=== PATIENT | female | born 1990 | race Caucasian/White ===

== ENCOUNTER 2016-11-26 11:20 | Emergency (ER) | payer OTHER ==
[~2016-11-26] VITALS: Ht 147.3 cm; Wt 68.0 kg
[2016-11-26 11:23] VITALS: BP_SYST 104; BP_SYST 82
[2016-11-26 11:48] LABS: BASOPHILS % (AUTO) 0.6 % (0.0-2.0); EOSINOPHILS # (AUTO) 0.1 K/uL (0.0-0.4); EOSINOPHILS % (AUTO) 1.4 % (0.0-4.0); HEMATOCRIT 40.8 % (36-48); HEMOGLOBIN 13.6 g/dL (12.0-16.0); LYMPHOCYTES % (AUTO) 23.9 % (20.5-51.5); MEAN CORPUSCULAR HEMOGLOBIN 28 pg (27-31); MEAN CORPUSCULAR HGB CONC 33 % (32-36); MEAN CORPUSCULAR VOLUME 85 fL (79.0-98.0); MONOCYTES # (AUTO) 0.6 K/uL (0.0-1.0); MONOCYTES % (AUTO) 6.8 % (1.7-9.3); NEUTROPHILS # (AUTO) 5.6 K/uL (1.8-7.7); NEUTROPHILS % (AUTO) 67.3 % (40.0-70.0); PLATELET COUNT (AUTO) 209 K/uL (130-430); WHITE BLOOD COUNT (AUTO) 8.3 K/uL (4.8-10.8)
[2016-11-26 12:00] LABS: CALCIUM 9.3 mg/dL (8.4-11.0); CREATININE 0.83 mg/dL (0.55-1.30); POTASSIUM 3.8 mmol/L (3.5-5.1)
[2016-11-26 12:04] LABS: INR 1.1 (0.8-1.2); PROTHROMBIN TIME 11.1 SECS (9.5-12.5)
[2016-11-26 12:05] LABS: ALBUMIN 3.7 g/dL (3.4-4.8); TOTAL BILIRUBIN 0.6 mg/dL (0.0-1.0)
[2016-11-26 13:21] VITALS: BP_SYST 119
== END 2016-11-26 13:22 | disposition home or self-care (01) ==
LOC: SED 11:20
DX: R55 Syncope and collapse (principal)
CPT/HCPCS: 36415; 70450-TC; 71010; 80053; 82550-TC; 84484; 84703; 85025; 85610-TC; 85730-TC; 93005; 99285